=== PATIENT | male | born 1995 | race Caucasian/White ===

== ENCOUNTER 2020-12-23 15:27 | Emergency (ER) | payer SELFPAY ==
[2020-12-23 15:38] VITALS: BP 164/94; PULSE 90; RESP 16; TEMP 36.7; O2SAT 96
--- NOTE | 2020-12-23 16:08 | ED.GENADUL_ITS ---
Discharge Plan Disposition Patient Disposition: HOME Condition: Stable Discharge Details Clinical Impression: Anxiety Primary Care Provider: Annie,Local ED Provider: Jeanette Clarke Home Meds and New Rx's Prescriptions: No Action No Known Home Meds RF: 0 Discharge Instructions Instructions: Anxiety (ED) Additional Instructions: Please continue a safety plan as outlined by mental health. Plan is for you to go to the [facility] in [facility] and then [facility] in [place] tomorrow. Mental health will stay in close contact with you. If you have any concerns please call them at [phone]. They will be in touch with you tomorrow. I have asked her care management team to help arrange for local primary care provider. Please follow-up with the next 1 to 2 weeks for reevaluation of your mental health as well as your elevated blood pressure. If you develop any thoughts of harming yourself, harming others or other new/worsening symptoms please seek care urgently once again. Medical Decision Making Patient is a pleasant 25-year-old male with past medical history pertinent for anxiety, depression and bipolar. He presents today with chief complaint of feeling unsafe. Not sure if he will hurt himself or someone else. He states that he has been feeling wound like a clock for the past year but is noted a significant change since 14 December. He states that he was on Risperdal approximately 1 year ago and stayed on this medication for about 8 weeks. After no change in his symptoms, he states that he stopped taking them. He states that he smokes marijuana daily. Denies other illicit drug use. He has been superficial cutting in the past but none currently. He has been hospitalized x2, once in [place] and one in [place]. Patient currently resides in [place]. He states that he felt like he was getting insufficient care in [place] and wanted to come here for evaluation. States that he got in the car and began driving into the state. [place] on the interstate and called 911 for an emergency mental evaluation. On exam, patient appears nontoxic. He is hypertensive but states that this is baseline for him. He has no nuchal rigidity, no evidence to suggest [employer] infection. No focal neurological deficit. Patient seems to have good personal insight. He is expressing thoughts of impulsiveness. Will consult with mental health. CPS O is at bedside, will order rapid Covid testing. Rapid Covid testing is negative. Laboratory evaluation significant for mild transaminitis. We will have him follow-up with primary care regarding this. Patient was evaluated by mental [facility]. They report that after speaking with the patient further, patient is preferring a local place to stay but is not actively threat to himself or others. This does correlate with my initial evaluation. We will attempt to get the patient local housing. He will follow- up as an outpatient with mental health. Patient was able to speak with [address] and get housing locally for this evening with plan for him to stay in [place] tomorrow. [facility] will help with transfer. call or contact centre manager advised that hospital will help with financial assistance with transportation. Patient was reevaluated. He denies any active suicidal or homicidal thoughts. He is in agreement with close follow-up with mental health. Safety plan was established by [facility]. He will stay locally and stay in close contact with them. I did give him their contact information in case he has any questions or concerns. Strict return precautions were discussed. I have asked care management team to help establish local primary care to establish care close follow-up for mental health, elevated blood pressure and transaminitis. I discussed the plan with the patient who is in agreement. All of his questions and concerns were addressed and he is in agreement with this plan HPI General Mode of arrival: ambulatory . Date/Time Provider Initiated Documentation: 12/23/20 15:54 . Limitations to Documentation: no limitations . Information obtained by: patient and RN notes reviewed . History of Present Illness 25 year old M presents to the emergency department with the chief complaint of anxious, impulsive, described as moderate, Patient started experiencing this year(s) (1) and it has been intermittent (constant over the past 10 days, intermittent prior to that). No relieving factors improve symptom(s), Other factors that worsen symptoms (COVID) . Patient notes no other symptoms.. Patient did receive the following treatments prior to arrival, none Related Data Home Medications Medication Instructions Recorded Confirmed Unknown [No Known Home Meds] 12/23/20 12/23/20 Allergies Allergy/AdvReac Type Severity Reaction Status Date / Time amoxicillin Allergy Unverified 12/23/20 15:50 General Stated Complaint: PsychEval NICOLE: 2 Review of Systems Constitutional Constitutional: Reports as per HPI, Denies chills, Denies fatigue, Denies fever(s), Denies headache(s) and Denies weakness Eyes Eyes: Denies change in vision ENT Ears, Nose, Mouth, and Throat: Denies headache(s) Cardiovascular Cardiovascular: Reports as per HPI, Denies chest pain, Denies lightheadedness, Denies dyspnea and Denies dyspnea on exertion Respiratory Respiratory: Reports as per HPI, Denies cough, Denies dyspnea and Denies dyspnea on exertion Gastrointestinal Gastrointestinal: Reports as per HPI, Denies abdominal pain, Denies change in bowel habits, Denies nausea and Denies vomiting Genitourinary Genitourinary: Denies system reviewed and no additional complaints, except as documented (denies any change in urinary habits) Musculoskeletal Musculoskeletal: Denies abnormal gait Integumentary/Breasts Skin/Breast: Reports as per HPI and Denies rash Neurologic Neurologic: Denies abnormal movements, Denies abnormal speech, Denies abnormal gait, Denies headache(s), Denies paresthesias and Denies weakness Psychiatric Psychiatric: Reports as per HPI, Reports anxiety, Reports depression, Reports mood swings, Denies homicidal ideation and Reports suicidal ideation (states he has superficially cut himself one year ago) Endocrine Endocrine: Denies fatigue [facility] Social History Smoking/Tobacco Use Status: Current every day Tobacco Type: cigarettes Smoking packs per day: 1 Smoking cigarettes per day: 20.0 Smoking risk assessment performed?: Yes Alcohol Intake: current Drug use: Never Substance use type: does not use and marijuana Do you feel safe at home: No Do you feel safe in your relationship?: No Additional Social history: pt states that he left town with out telling any one Exam Const General: cooperative, healthy appearing, comfortable, no acute distress, well developed and well groomed Nutritional Appearance: well nourished and overweight Orientation: alert and awake Eyes General: appearance normal, both eyes and all related structures Neck Neck: normal visual inspection, full ROM and no meningeal signs Resp Effort & Inspection: normal respiratory effort, able to speak in complete sentences and no respiratory distress Auscultation: clear to auscultation bilaterally, no rales, no rhonchi and no wheezes Cardio Rate: regular rate Rhythm: regular rhythm Heart Sounds: S1 normal and S2 normal Skin General skin exam: no rashes or lesions noted Trauma: no lacerations or abrasions Neuro General: patient alert and patient awake Cognition: normal cognition Speech: speech normal Gait: normal gait Psych Appearance: grossly normal and well kempt Mental Status: mental status grossly normal Speech and Movement: speech and movement normal Mood: congruent mood Affect: normal affect Attitude: cooperative Thought Process: normal Thought Content: normal Insight: insight good Judgment: judgment good Course Vital Signs Vital signs: Vital Signs Temperature 36.7 C 12/23/20 15:38 Pulse 90 12/23/20 15:38 Respiratory Rate 16 12/23/20 15:38 Blood Pressure 164/94 H 12/23/20 15:38 Pulse Oximetry 96 12/23/20 15:38 Temperature 36.7 C 12/23/20 15:38 Temperature Source Temporal Artery Scan 12/23/20 15:38 Pulse 90 12/23/20 15:38 Respiratory Rate 16 12/23/20 15:38 Respiratory Effort 12/23/20 15:45 Blood Pressure 164/94 H 12/23/20 15:38 Blood Pressure Position Sitting 12/23/20 15:38 Pulse Oximetry 96 12/23/20 15:38 Oxygen Delivery Method Room Air 12/23/20 15:38 Oxygen Flow Rate 0 12/23/20 15:38
[2020-12-23 16:38] LABS: Source Nasal/Nares
[2020-12-23 17:06] LABS: Abs Immature Grans 0.04 10^3/uL (0.0-0.06); Absolute Basophil Count 0.03 10^3/uL (0.0-0.2); Absolute Eosinophil Count 0.02 10^3/uL (0.0-0.7); Absolute Lymphocyte Count 2.16 10^3/uL (1.2-3.4); Absolute Monocyte Count 0.62 10^3/uL (0.1-0.8); Absolute Neutrophil Count 6.06 10^3/uL (1.2-6.7); Basophils % 0.3; Eosinophils % 0.2; HCT 48.2 % (40.0-50.0); HGB 16.4 g/dL (13.5-17.5); Immature Grans % 0.4; Lymphocytes % 24.2; MCH 30.5 pg (27.0-33.0); MCV 89.8 fL (80-95); MPV 9.4 fL (8.0-11.0); Monocytes % 6.9; Nucleated RBC 0 %; Platelet Count 296 10^3/uL (130-400); RBC 5.37 10^6/uL (4.36-5.78); RDW 12.7 % (11.8-14.1); RDW-SD 41.6 fL; WBC 8.93 10^3/uL (4.4-10.8)
[2020-12-23 17:20] LABS: COVID-19 PCR Negative (Negative); Influenza A PCR Negative (Negative); Influenza B PCR Negative (Negative); RSV PCR Negative (Negative)
[2020-12-23 17:36] LABS: ALT 102 U/L (16-63); AST 55 U/L (15-37); Alkaline Phosphatase 73 U/L (46-116); BUN 11 mg/dL (7-18); Bilirubin, Total 0.5 mg/dL (0.2-1.0); CREATININE 1.1 mg/dL (0.70-1.30); Chloride 102 mmol/L (98-107); Glucose 96 mg/dL (74-106); Potassium 3.6 mmol/L (3.5-5.1); Sodium 142 mmol/L (136-145); TSH 0.52 uIU/mL (0.36-3.74); Total Protein 8.1 g/dL (6.4-8.2)
[2020-12-23 17:46] LABS: Acetaminophen < 2 ug/mL (10-30)
[2020-12-23 17:48] LABS: ETHANOL BLOOD < 3.0 mg/dL (<3)
[2020-12-23 18:20] VITALS: BP 161/101; PULSE 90; RESP 18; TEMP 37; O2SAT 95
[2020-12-23 18:20] LABS: Bilirubin Small (Negative); Blood Negative (Negative); Clarity Clear (Clear); Glucose Negative (Negative); Ketones 15 mg/dL (Negative); Leukocyte Esterase Negative (Negative); Nitrite Negative (Negative); Specific Gravity >= 1.030 (1.005-1.025); Urobilinogen 0.2 EU/dL (Up TO 0.2); pH 5.5 (5-8)
[2020-12-23 18:27] LABS: Bacteria Negative HPF (Negative); C & S Indicated? No; Casts Negative LPF (Negative); Crystals Few Amorphous HPF (Negative); Epithelial Cells Negative HPF (Negative); Mucus Trace (Negative); Other Cells Negative (Negative); RBC Negative HPF (0-2); WBC 0-2 HPF (0-5)
[2020-12-23 18:50] LABS: *AMPHETAMINES SCREEN URINE Negative (Negative); *BARBITURATES SCREEN URINE Negative (Negative); *BENZODIAZEPINES SCREEN URINE Negative (Negative); Cannabinoids THC POSITIVE (Negative); Cocaine Screen,Urine Negative (Negative); METHADONE URINE SCREEN Negative (Negative); OPIATES URINE SCREEN Negative (Negative)
[2020-12-23 18:51] LABS: Tricyclic Antidepressants Negative (Negative)
--- NOTE | 2020-12-23 19:32 | CMPROGNOTE_ITS ---
- If Service Date Differs Date of service: 12/23/20 Time of Service: 19:32 Care Management Progress Note S/O: Jeffrey comes to the ED via EMS. He shares he is from [facility] in the [facility] in [place]. He states he is not getting the help he needs with his mental health in [place], so he decided to drive to [place] where he believes more help is available. He reportedly drove from [place] and made it as far as [place], [place], before running out of gas. Jeffrey alleges he has no money and no credit cards, so he is unable to put gas in his car. Not knowing what to do, he dialed and EMS subsequently brought him to [facility]. Jeffrey reports he has no family or friends in the area and his parents who live in [place] won't help him. encourages him to call his parents but he declines. Jeffrey is assessed by [facility] Crisis Screener, and found to not meet criteria for a voluntary psychiatric hospitalization. He is instructed to call to obtain a motel voucher and is subsequently given a voucher for the [employer]. A: Jeffrey is a 25 year old male who presents to the ED for a psychiatric evaluation. P: Jeffrey does not meet criteria for a voluntary psychiatric hospitalization. He is, therefore, discharged from the hospital. He will follow up with [facility] in the morning.
--- NOTE | 2020-12-23 20:16 | NUR.NOTE ---
Nursing Note: Call received from Estrellita at [address]. They have gotten patient a room at the [facility] for tonight, but no transportation there. Tomorrow AM he will be transported to the [facility] in [place] where people are quarantining . The person arranging this will call the hotel between 0800 and 0900 tomorrow AM to speak with the patient and review the POC with him. Call to Case Management to help with getting patient to the [facility]. They will give him an RCT voucher.
[2020-12-23] MEDS: Nicotine 4 MG GUM CH (20:40)
--- NOTE | 2020-12-24 06:25 | NUR.NOTE ---
Nursing Note: referral faxed to care management needs follow up and pcp libl 12/24/20 @ [id number]
--- NOTE | 2020-12-25 16:41 | PDOC.MHCN ---
Date of service: 12/23/20 Time of Service: 16:41 Mental Health Crisis Note Presenting Issue How did you arrive at the ED and why did you come: Pt arrived via [facility] after he ran out of gas and called 911 stating he was going to hurt himself. Precipitating Factors Pt denied SI or HI. He tried to convince he was but then let on that it was simply because he did not have a place to stay. Disposition BEHAVIOR: Pt is manipulative and seeking to get his needs met however he can. EYE CONTACT: good MOOD: normal and happy although states he is depressed an anxious. AFFECT: normal APPETITE: not eaten or drank in 3-4 days per his report. SLEEP(trouble falling/staying asleep: not slept in 3/4 days per his report. Plan Pt reported that he knows he is in crisis when he has gone 3-4 days without sleeping, eating or drinking. He stated that he will also use more THC. He reported that he handles crisis by getting help when I can't figure it out on my own. Pt reported that he has no natural or professional supports. For self-care Pt reported he takes care of his ADL's, listens to music, reads, plays video games, goes for a drive and enjoys being in nature. His purpose for living is good food and good times. Pt reported that he could keep himself safe if he had a place to stay. Pt will be allowed to use the hospital phone to call [address] to set up housing. He will call [facility] in the am to let us know where he is staying so that we can set him up with a nurse case manager to assist in getting services. [facility]' number will be put on his discharge paperwork so that he knows how to contact [facility]. He was informed of [facility]' 08/05 crisis line should he need immediate mental health support. Signature Clinician's Name/Title: Gely Wilson, MS, [facility], [facility]
== END 2020-12-23 20:41 | disposition home or self-care (01) ==
PROVIDERS: Emergency Provider Physician Assistant
DX: F41.8 Other specified anxiety disorders (principal); I10 Essential (primary) hypertension; R74.01 Elevation of levels of liver transaminase levels; Z03.818 Encounter for observation for suspected exposure to other biological agents ruled out
CPT/HCPCS: 36415; 80053; 80307; 99285; 80320; 80329; 81003; 81015; 84443; 85025; 99283